=== PATIENT | female | born 1955 | race Caucasian/White ===

== ENCOUNTER 2024-05-19 09:00 | Observation (INO) ==
--- NOTE | 2024-05-19 09:11 | Emergency Department Note ---
HPI - URI/Sore Throat General Chief Complaint: Headache Stated Complaint: GENERAL ILLNESS Time Seen by Provider: 05/19/24 09:02 Source: patient Limitations: no limitations History of Present Illness HPI Narrative: This is a 69 year old female patient that presents to the ER with c/o nasal congestion, headaches, sore throat and Nausea since 0400 this morning. Patient denies any chest pain, SOB, abdominal pain, back pain, fever, chills, vomiting or diarrhea MD elicited complaint: Reports sore throat, rhinorrhea and nasal congestion Onset (ago): hour(s) (5) Associated symptoms: Reports headache, rhinorrhea, nasal congestion, sore throat and nausea Treatments prior to arrival: Reports none Related Data Allergies Allergy/AdvReac Type Severity Reaction Status Date / Time Sulfa (Sulfonamide Allergy Unknown Verified 05/19/24 09:07 Antibiotics) Review of Systems Status of ROS 10 or more systems reviewed and unremark able except as noted in history and below Constitutional Denies: fever, chills, change in weight, fatigue, malaise, night sweats or change in sleep pattern Eyes Denies: change in vision, blurry vision, blind spots or light sensitivity Ears, nose, mouth, and throat Reports: throat pain; Denies: neck pain, throat swelling, difficulty swallowing or hoarseness Cardiovascular Denies: chest pain, palpitations, edema, swelling of feet/ankles or lightheadedness Respiratory Reports: cough; Denies: shortness of breath, wheezing, stridor or pain on inspiration Gastrointestinal Reports: nausea; Denies: abdominal pain, vomiting, coffee grounds in vomit, heartburn or diarrhea Genitourinary Denies: painful urination, urinary frequency, urinary urgency, urinary incontinence or blood in urine Musculoskeletal Denies: back pain, neck pain, extremity pain, extremity swelling or joint pain Integumentary/Breast Denies: rash, itching, redness, skin pain, skin tenderness or skin swelling Neurological Denies: headache, numbness in extremities, weakness in extremities or lack of coordination Psychiatric Denies: anxiety, mood swings, panic attacks, change in sleep pat tern or hopelessness Endocrine Denies: excessive urination, excessive thirst, fatigue, cold intolerance or excessive sweating Hematologic/Lymphatic Denies: easy bruising or easy bleeding Allergic/Immunologic Denies: hives, throat swelling, tongue swelling or facial swelling PFSH PFSH Medical History (Updated 05/19/24 @ 11:39 by Carmel Dwyer, JAYCEE) Hypothyroidism Hypertension Surgical History (Updated 05/19/24 @ 11:39 by Carmel Dwyer, JAYCEE) History of nasal surgery Social History Smoking status: never smoker Exam Constitutional: normal general appearance and no apparent distress Vital Signs - 24 hr 05/19/24 09:00 05/19/24 09:45 05/19/24 10:30 Temperature 98.2 F Pulse Rate 94 H 77 79 Respiratory Rate 20 20 20 Blood Pressure 159/83 178/66 153/86 Pulse Oximetry 96 97 97 Oxygen Delivery Me thod Room Air Room Air Room Air 05/19/24 11:15 05/19/24 11:45 Temperature Pulse Rate 77 76 Respiratory Rate 20 20 Blood Pressure 141/63 148/81 Pulse Oximetry 95 98 Oxygen Delivery Me thod Room Air Room Air HENMT: normocephalic, head/scalp atraumatic, hearing grossly normal bilaterally, external ears normal, nasal mucous membranes normal, external nose normal, oral mucous membranes normal and oropharynx normal + nasal congestion Eyes: PERRL, EOMs intact bilaterally and conjunctivae normal Neck/C-Spine: visual inspection normal and trachea midline Lymph: no lymphadenopathy noted Chest: inspection of chest normal Respiratory: breath sounds equal bilaterally, normal respiratory effort, clear to auscultation bilaterally, no wheezes, no rales, no retractions and no use of accessory muscles Cardiovascular: normal heart rate noted, regular rhythm noted, no gallop, no rub, no murmur, no JVD, no clicks, peripheral pulses 2+ throughout and no additional abnormal heart sounds Gastrointestinal: abdomen normal to inspection, abdomen soft to palpation, nontender to palpation, nontender to percussion, nondistended, normoactive bowel sounds, no hepatosplenomegaly, no masses, no pulsatile mass, no ascites and no hernia Genitourinary: no CVA tenderness Back/Pelvis: spine normal to inspection Extremities: normal to inspection, normal to palpation, no tenderness, full ROM, no joint enlargement and no deformity Neurology: 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, no movement abnormality noted, no focal motor d eficit noted, no sensory deficits noted, gait normal, speech normal, coordination normal, no pronator drift noted, no fasciculations noted and GCS normal Psychiatry: mental status grossly normal, oriented x3, thought process normal and cooperative Skin: skin color normal Course Course Hospital Course: 1023: VSS, no s/s of acute distress noted 1103: Walking O2 sats 94-99%RA, no s/s of acute distress noted 1129: patient states she still is having Nausea and not feeling any better will admit patient to the hospital for further evaluation Vital Signs Vital signs: Vital Signs Temperature 98.2 F 05/19/24 09:00 Pulse Rate 94 H 05/19/24 09:00 Respiratory Rate 20 05/19/24 09:00 Blood Pressure 159/83 05/19/24 09:00 Pulse Oximetry 96 05/19/24 09:00 Oxygen Delivery Method Room Air 05/19/24 09:00 Temperature 98.2 F 05/19/24 09:00 Pulse Rate 76 05/19/24 11:45 Respiratory Rate 20 05/19/24 11:45 Blood Pressure 148/81 05/19/24 11:45 Pulse Oximetry 98 05/19/24 11:45 Oxygen Delivery Method Room Air 05/19/24 11:45 MDM - URI/Sore Throat Differential Diagnosis Upper Respiratory Differential Diagnosis: upper respiratory infection Medical Records MDM Medical Records Attestation: I reviewed the patient's medical records. Lab Data Attestation: I reviewed the patient's lab results. Labs: Lab Results 05/19/24 05/19/24 Range/Units 09:10 11:43 WBC 7.0 (4.3-9.3) K/uL RBC 3.6 L (4.00-5.50) M/uL Hgb 11.1 L (12.5-15.8) gm/dL Hct 33.8 L (35.9-46.7) % MCV 93.4 (81.0-93.7) fl MCH 30.7 (27.6-32.2) pg MCHC 32.9 L (33.1-35.3) g/dl RDW 17.2 H (11.4-14.2) % Plt Count 358 H (152-353) K/uL MPV 8.3 (6.9-10.8) fl Gran % 90.0 H (47.8-71.3) % Lymph % (Auto) 3.0 L (20.0-43.0) % Sac % (Auto) 6.3 (3.6-9.8) % Eos % (Auto) 0.1 L (0.4-2.8) % Baso % (Auto) 0.6 (0.1-0.85) Lymph # (Auto) 0.2 L (1.1-3.1) Sac # (Auto) 0.4 L (1.1-3.1) Eos # (Auto) 0.0 (0.0-0.2) Baso # (Auto) 0.0 (0.0-0.1) Absolute Gran (auto) 6.3 H (2.3-6.0) Sodium 138 (136-145) mmol/L Potassium 4.0 (3.6-5.2) mmol/L Chloride 102.0 (98-107) mmol/L Carbon Dioxide 25 (21-32) mmol/L Anion Gap 11.0 (4-14) mEq/L BUN 21 H (7-18) mg/dL Creatinine 0.8 (0.6-1.3) mg/dL Estimated GFR 78.7 (>59.9) Glucose 121 H (70-110) mg/dL Lactic Acid 0.8 (0.27-1.43) mmol/L Calcium 8.3 L (8.5-10.1) mg/dL Total Bilirubin 0.30 (0.0-1.0) mg/dL AST 28 (15-37) U/L ALT 32 (30-65) U/L Alkaline Phosphatase 65 (50-136) U/L Troponin I High Sens 4.30 (4.0-60.4) ng/L Total Protein 6.8 (6.4-8.2) g/dL Albumin 3.6 (3.4-5.0) g/dL Lipase 20.0 (16.0-77.0) U/L COVID-19 (ANA LUISA) Detected A (Not Detectd) Influenza Type A Ag Negative (Negative) Influenza Type B Ag Negative (Negative) Streptococcus Screen Negative (Negative) Imaging Data Attestation imaging: I have reviewed the pertinent imaging results. Radiologist Impression: CT brain: negative ECG Data Attestation ECG: I have reviewed the pertinent ECG results. Discharge Plan Discharge Patient Disposition: Admitted As Observation Condition: Stable Clinical Impression: COVID, Intractable nausea and vomiting, Acute intractable headache Print Language: Syriac Referrals: Mekhi Dubose [Primary Care Provider] - Time of Disposition: 12:56
[2024-05-19] MEDS: ONDANSETRON HCL/PF 4 MG/2 ML VIAL INJ ONE (09:18)
[2024-05-19] MEDS: ACETAMINOPHEN 325 MG TABLET PO ONE (09:18)
[2024-05-19] MEDS: ONDANSETRON HCL/PF 4 MG/2 ML VIAL IVP ONE (10:45)
[2024-05-19] MEDS: 0.9 % SODIUM CHLORIDE 1000 ML 1,000 ML IV STA (10:45)
[2024-05-19 12:33] LABS: Basophils%(Percent) Auto 0.6 (0.1-0.85); Eosinophils%(Percent) Auto 0.1 % (0.4-2.8); Granulocytes#(Absolute)- Auto 6.3 (2.3-6.0); Hematocrit 33.8 % (35.9-46.7); Mean Corpuscular Volume 93.4 fl (81.0-93.7); Monocytes #(Absolute)- Auto 0.4 (1.1-3.1); Monocytes %(Percent)- Auto 6.3 % (3.6-9.8); Platelet Count 358 K/uL (152-353)
[2024-05-19 12:56] LABS: Urine Appearance CLEAR (CLEAR); Urine Blood TRACE (NEG - TRACE); Urine Color YELLOW (STRAW/YELL.); Urine Urobilinogen Normal (NORMAL)
[2024-05-19 12:57] LABS: Urine Amorphous Sediment Negative (Negative); Urine Yeast Negative (Negative)
[2024-05-19] MEDS: MORPHINE SULFATE 2 MG/ML CARTRIDGE IV ONE (12:57)
[2024-05-19] MEDS ORDERED: ACETAMINOPHEN 500 MG TABLET PO PRN (14:37)
[2024-05-19] MEDS: 0.9 % SODIUM CHLORIDE 1000 ML 1,000 ML IV SCH (15:55)
[2024-05-19] MEDS: ONDANSETRON HCL/PF 4 MG/2 ML VIAL INJ PRN (20:50)
[2024-05-20 05:37] LABS: Basophils%(Percent) Auto 0.2 (0.1-0.85); Granulocytes % - Auto 62.9 % (47.8-71.3); Granulocytes#(Absolute)- Auto 3.1 (2.3-6.0); Hematocrit 32.6 % (35.9-46.7); Mean Corpuscular Volume 93.9 fl (81.0-93.7); Monocytes #(Absolute)- Auto 1.2 (1.1-3.1); Monocytes %(Percent)- Auto 23.7 % (3.6-9.8); Platelet Count 306 K/uL (152-353); White Blood Count 4.9 K/uL (4.3-9.3)
[2024-05-20 06:11] LABS: Potassium 3.7 mmol/L (3.6-5.2)
[2024-05-20] MEDS: MORPHINE SULFATE 2 MG/ML CARTRIDGE IV PRN (08:17)
[2024-05-20 08:18] VITALS: RESP 19
[2024-05-20] MEDS: PANTOPRAZOLE SODIUM 40 MG VIAL IVP SCH (10:49)
[2024-05-20] MEDS: CEFTRIAXONE SODIUM 1 GM in 0.9 % SODIUM CHLORIDE MB+ 50 ML IV SCH ×2 (10:50→17:39)
--- NOTE | 2024-05-20 15:20 | Short Stay Summary ---
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 Patient denies any chest pain, SOB, abdominal pain, back pain, fever, chills, vomiting or diarrhea. Patien t states started getting a cold on monday apon awakening. severe headache Monday am around 4 am and she could not go back to sleep and she was vomiting and nausea at the same time started at 4 am this morning. 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 complaint: Reports sore throat, rhinorrhea and nasal congestion Review of Systems Status of ROS 10 or more systems reviewed and unremark able except as noted in history and below Constitutional Reports: fatigue, malaise and change in sleep pattern; Denies: fever, chills, change in weight or night sweats Eyes Reports: dry eyes; Denies: change in vision, blurry vision, blind spots, light sensitivity, eye discomfort, eye discharge, increased production of tears, seeing flashes or decreased night vision Ears, nose, mouth, and throat Reports: throat pain, nasal discharge and nasal congestion; Denies: neck pain, throat swelling, difficulty swallowing, hoarseness, mouth pain, swelling of lips/tongue, dry mouth, bad breath, ear discharge, change in hearing or tinnitus Cardiovascular Denies: chest pain, palpitations, edema, swelling of feet/ankles, lightheadedness, shortness of breath with exertion or shortness of breath when lying down Respiratory Reports: cough and change in phlegm color; Denies: shortness of breath, wheezing, stridor, pain on inspiration or coughing up blood Gastrointestinal Reports: nausea, vomiting and feeling full early; Denies: abdominal pain, coffee grounds in vomit, heartburn, diarrhea, constipation, bloating, belching, excessive passing of gas, difficulty swallowing or change in bowel habits Genitourinary Denies: painful urination, urinary frequency, urinary urgency, urinary incontinence or blood in urine Musculoskeletal Reports: back pain (chronic) and limited range of motion; Denies: neck pain, extremity pain, extremity swelling or joint pain Integumentary/Breast Denies: rash, itching, redness, skin pain, skin tenderness, skin swelling, sores or new lesion Neurological Reports: headache, dizziness and difficulty communicating thoughts; Denies: numbness in extremities, weakness in extremities, lack of coordination, vertigo, confusion, behavioral changes, slurred speech or seizure- like activity Psychiatric Reports: anxiety and difficulty concentrating; Denies: mood swings, panic attacks, change in sleep pattern, hopelessness, loss of interest, irritability, visual hallucinations or auditory hallucinations Endocrine Denies: excessive urination, excessive thirst, fatigue, cold intolerance, excessive sweating, flushing or heat intolerance Hematologic/Lymphatic Denies: easy bruising, easy bleeding or enlarged lymph nodes Allergic/Immunologic Reports: seasonal allergies; Denies: hives, throat swelling, tongue swelling, facial swelling, wheezing, itchy eyes or food intolerance [facility] Medical History (Updated 05/20/24 @ 15:38 by Chantelle Fraser DO) Chronic back pain Sinusitis, acute Essential thrombocytosis Diverticulosis Hypothyroidism Hypertension Surgical History Hx of tonsillectomy H/O: hysterectomy History of nasal surgery Social History Smoking status: never smoker Problems where you live: no known problems Highest level of school completed/degree received: [employer] Meds Home Medications and Allergies Home Medications Medication Instructions Recorded Confirmed Type ciprofloxacin HCl 500 mg tablet 500 mg PO Q12H uti #10 tabs 05/20/24 Rx (Cipro) famotidine 20 mg tablet 20 mg PO BID 05/20/24 05/20/24 History fluticasone propionate 50 1 spray intranasal BID sinusitis 05/20/24 Rx mcg/actuation nasal #16 grams spray,suspension (Flonase Allergy Relief) hydroxyurea 500 mg capsule 500 mg PO DAILY 05/20/24 05/20/24 History levothyroxine 100 mcg tablet 100 mcg PO DAILY 05/20/24 05/20/24 History meloxicam 15 mg tablet 15 mg PO DAILY 05/20/24 05/20/24 History omeprazole 40 mg capsule,delayed 40 mg PO DAILY 05/20/24 05/20/24 History release ondansetron 4 mg disintegrating 4 mg PO Q6H PRN nausea and 05/20/24 Rx tablet vomiting #10 tabs tramadol 50 mg tablet 50 mg PO BID 05/20/24 05/20/24 History zolpidem 12.5 mg tablet,extended 12.5 mg PO BEDTIME 05/20/24 05/20/24 History release,multiphase Allergies Allergy/AdvReac Type Severity Reaction Status Date / Time Sulfa (Sulfonamide Allergy Unknown Verified 05/19/24 09:07 Antibiotics) Exam Constitutional: abnormal general appearance (disheveled) and (chronically ill), no apparent distress, abnormal body habitus (obese), limitations noted (physical limitations) and alert Vital Signs - 24 hr 05/19/24 16:00 05/19/24 19:50 05/19/24 23:39 Temperature 98.0 F 98.4 F 98.2 F Pulse Rate [Left R adial] 79 65 76 Respiratory Rate 18 19 17 Blood Pressure [Le ft Arm] 159/82 154/83 151/73 Pulse Oximetry 96 94 L 96 Oxygen Delivery Me thod Room Air Room Air Room Air 05/20/24 03:51 05/20/24 08:00 05/20/24 12:00 Temperature 97.8 F 98 F 97.9 F Pulse Rate [Left R adial] 71 65 66 Respiratory Rate 20 19 19 Blood Pressure [Le ft Arm] 156/69 159/66 137/80 Pulse Oximetry 96 96 95 Oxygen Delivery Me thod Room Air Room Air Room Air HENMT: normocephalic, head/scalp atraumatic, hearing grossly normal bilaterally, external ears normal, TMs abnormal (bulging), (fluid behind TM) and (TM mobility abnormal), nasal mucous membranes abnormal (nasal discharge) and other (recent sinus surgery noted with left sided changes), external nose normal, oral mucous membranes normal, oropharynx abnormal (erythema) and other (PND), dentition abnormal and gingiva normal + nasal congestion Eyes: PERRL, EOMs intact bilaterally and conjunctivae normal Neck/C-Spine: visual inspection normal and trachea midline Lymph: no lymphadenopathy noted Chest: inspection of chest normal Respiratory: breath sounds unequal (deminished bases secondary to body habitus and shallow breathing), normal respiratory effort, clear to auscultation bilaterally, no wheezes, no rales, no retractions and no use of accessory muscles Cardiovascular: heart rate abnormal (bradycardic), regular rhythm noted, no gallop, no rub, no murmur, no JVD, no clicks, peripheral pulses 2+ throughout and no additional abnormal heart sounds Gastrointestinal: abdomen normal to inspection, abdomen soft to palpation, tender to palpation (mild), (LLQ) and (RLQ), nontender to percussion, nondistended, normoactive bowel sounds, hepatosplenomegaly noted, no masses, no pulsatile mass, no ascites and no hernia Genitourinary: no CVA tenderness, bladder abnormal to palpation and external appearance normal Back/Pelvis: thoracic spine tenderness noted, lumbar spine tenderness noted, thoracic spine ROM abnormal and lumbar spine ROM abnormal Extremities: normal to palpation, tenderness noted, abnormal ROM noted, no joint enlargement and no deformity Neurology: pullman clerk II-XII intact, no movement abnormality noted, no focal motor deficit noted, sensory deficit noted, deep tendon reflexes 2+ bilaterally, gait abnormality noted, speech normal, coordination normal, no pronator drift noted, no fasciculations noted and GCS normal Psychiatry: mental status grossly normal, oriented x3, thought process normal, cooperative, affect normal, psychomotor activity normal and memory normal Feel stressed/tense/nervous/anxious/difficulty sleeping: to some extent Life stressors: financial matters and unknown source of stress Skin: skin color normal, no rash, no lesions, no ecchymosis noted, no wounds, skin turgor abnormal, no jaundice, no petechiae, no mottling and nails abnormality noted Assessment and Plan Assessment and Plan (1) Acute cystitis with hematuria: Code(s): N30.01 - Acute cystitis with hematuria (2) COVID-19: Code(s): U07.1 - COVID-19 (3) Acute intractable headache: Qualifiers: Headache type: tension-type Qualified Code(s): G44.201 - Tension-type headache, unspecified, intractable Code(s): R51.9 - Headache, unspecified (4) Sinusitis, acute: Qualifiers: Recurrence: non-recurrent Sinusitis location: pansinusitis Qualified Code(s): J01.40 - Acute pansinusitis, unspecified Code(s): J01.90 - Acute sinusitis, unspecified (5) Chronic back pain: Qualifiers: Back pain location: back pain in other location Qualified Code(s): M54.89 - Other dorsalgia; G89.29 - Other chronic pain Code(s): M54.9 - Dorsalgia, unspecified; G89.29 - Other chronic pain (6) Hypertension: Qualifiers: Hypertension type: primary hypertension Qualified Code(s): I10 - Essential (primary) hypertension Code(s): I10 - Essential (primary) hypertension (7) Essential thrombocytosis: Code(s): D47.3 - Essential (hemorrhagic) thrombocythemia (8) Hypothyroidism: Qualifiers: Hypothyroidism type: acquired Qualified Code(s): E03.9 - Hypothyroidism, unspecified Code(s): E03.9 - Hypothyroidism, unspecified (9) Nausea & vomiting: Qualifiers: Vomiting type: bilious vomiting Qualified Code(s): R11.14 - Bilious vomiting Code(s): R11.2 - Nausea with vomiting, unspecified Results Labs Labs: CBC WBC 4.9 K/uL (4.3-9.3) 05/20/24 05:20 RBC 3.5 M/uL (4.00-5.50) L 05/20/24 05:20 Hgb 11.0 gm/dL (12.5-15.8) L 05/20/24 05:20 Hct 32.6 % (35.9-46.7) L 05/20/24 05:20 MCV 93.9 fl (81.0-93.7) H 05/20/24 05:20 MCH 31.7 pg (27.6-32.2) 05/20/24 05:20 MCHC 33.8 g/dl (33.1-35.3) 05/20/24 05:20 RDW 17.3 % (11.4-14.2) H 05/20/24 05:20 Plt Count 306 K/uL (152-353) 05/20/24 05:20 MPV 8.1 fl (6.9-10.8) 05/20/24 05:20 Gran % 62.9 % (47.8-71.3) 05/20/24 05:20 Lymph % (Auto) 13.2 % (20.0-43.0) L 05/20/24 05:20 [place] % (Auto) 23.7 % (3.6-9.8) H 05/20/24 05:20 Eos % (Auto) 0.0 % (0.4-2.8) L 05/20/24 05:20 Baso % (Auto) 0.2 (0.1-0.85) 05/20/24 05:20 Lymph # (Auto) 0.7 (1.1-3.1) L 05/20/24 05:20 [place] # (Auto) 1.2 (1.1-3.1) 05/20/24 05:20 Eos # (Auto) 0.0 (0.0-0.2) 05/20/24 05:20 Baso # (Auto) 0.0 (0.0-0.1) 05/20/24 05:20 Absolute Gran (auto) 3.1 (2.3-6.0) 05/20/24 05:20 BMP Sodium 137 mmol/L (136-145) 05/20/24 05:20 Potassium 3.7 mmol/L (3.6-5.2) 05/20/24 05:20 Chloride 103.0 mmol/L (98-107) 05/20/24 05:20 Carbon Dioxide 23 mmol/L (21-32) 05/20/24 05:20 Anion Gap 11.0 mEq/L (4-14) 05/20/24 05:20 BUN 17 mg/dL (7-18) 05/20/24 05:20 Creatinine 0.6 mg/dL (0.6-1.3) 05/20/24 05:20 Estimated GFR 95.9 (>59.9) 05/20/24 05:20 Glucose 100 mg/dL (70-110) 05/20/24 05:20 Calcium 8.7 mg/dL (8.5-10.1) 05/20/24 05:20 Total Bilirubin 0.25 mg/dL (0.0-1.0) 05/20/24 05:20 AST 21 U/L (15-37) 05/20/24 05:20 ALT 27 U/L (30-65) L 05/20/24 05:20 Alkaline Phosphatase 55 U/L (50-136) 05/20/24 05:20 Total Protein 6.6 g/dL (6.4-8.2) 05/20/24 05:20 Albumin 3.4 g/dL (3.4-5.0) 05/20/24 05:20 Cardiac Enzymes Troponin I High Sens 4.30 ng/L (4.0-60.4) 05/19/24 11:43 Liver Function Total Bilirubin 0.25 mg/dL (0.0-1.0) 05/20/24 05:20 AST 21 U/L (15-37) 05/20/24 05:20 ALT 27 U/L (30-65) L 05/20/24 05:20 Alkaline Phosphatase 55 U/L (50-136) 05/20/24 05:20 Total Protein 6.6 g/dL (6.4-8.2) 05/20/24 05:20 Albumin 3.4 g/dL (3.4-5.0) 05/20/24 05:20 Urine Urine Color Yellow (STRAW/YELL.) 05/19/24 12:29 Urine Appearance Clear (CLEAR) 05/19/24 12:29 Ur Specific [place] 1.030 (1.001-1.035) 05/19/24 12:29 Urine Protein Negative (NEGATIVE) 05/19/24 12:29 Urine Glucose (UA) Normal (NORMAL) 05/19/24 12:29 Urine Ketones Large (NEGATIVE) 05/19/24 12:29 Urine Occult Blood Trace (NEG - TRACE) 05/19/24 12:29 Urine Nitrite Positive (NEGATIVE) 05/19/24 12:29 Urine Bilirubin Negative (NEGATIVE) 05/19/24 12:29 Urine Urobilinogen Normal (NORMAL) 05/19/24 12:29 Ur Leukocyte Esterase Negative (NEGATIVE) 05/19/24 12:29 Covid 19 positive with flu A and B and RSV not detected Pulse Oximetry Attestation: I have reviewed the pertinent pulse oximetry results. ECG Attestation: I have reviewed the pertinent ECG results. Prior ECG tracings: available for review Imaging Imaging ordered: Chest x-ray and CT scan - head Radiologist's impression: CT HEAD/BRAIN WO CON HISTORY: headacheheadache; COMPARISON: None. TECHNIQUE: Contiguous noncontrast axial CT images of the brain. Images reviewed in the axial imaging plane with reformatted sagittal and coronal images.The above CT scan was done with automated exposure control and the mA and kV was adjusted to obtain quality images according to patient size. FINDINGS: No evidence of acute intracranial hemorrhage, mass effect, or midline shift. Ventricles normal size and shape. Calvarium appears intact. Postsurgical changes left ethmoid, maxillary, and nasal passages. IMPRESSION: No acute intracranial process seen. Portable chest HISTORY: Chest pain COMPARISON: 03/14/2022 FINDINGS: Heart size is normal. Kajal are normal. Aorta is calcified. Right hemidiaphragm is chronically elevated. No congestive heart failure or infiltrates identified. There is minimal subsegmental atelectasis in the right lung base. Bony thorax is unremarkable. IMPRESSION: No acute infiltrates Minimal subsegmental atelectasis right lung base Chronically elevated right hemidiaphragm, stable DS: Providers Provider Date of admission: 05/19/24 13:04 Primary care physician: Mekhi Dubose Admitting clinician: Malu Paige Attending physician on admission: Joel Jones Attending physician on discharge: Chantelle Fraser Discharging clinician: Chantelle Fraser Anticipated date of discharge: 05/20/24 DS: Summary Hospital Course Hospital Course: 1023: VSS, no s/s of acute distress noted 1103: Walking O2 sats 94-99%RA, no s/s of acute distress noted 1129: patient states she still is having Nausea and severe headache 10 out of 10 and morphine and toradol did nothing to relieve headache in the ER and not feeling any better will admit patient to the hospital for further evaluation given rocephin 1 gram in the ER on arrival to the floor patient still unable to rest and has not slept since monday early am when she woke up ill. Morphine in the am still did not allow her to rest but it bought the headache from a 10 out of 10 to a 1-2 and very bearable and nausea resolved and patient ate lunch hung around the floor to get her 3rd dose of rocephin and hopefully her culture would be back but so far at discharge not reported out except we know gram negative rods sensitivity to follow. will discharge home on po cipro x 5 days. Reassurance and flonase and tesselon perles given to patient for symptom relief and she can buy mucinex otc for the covid and sinus infections if issues persist see her PCP in 2-5 days Status at Discharge Functional status at discharge: independent ambulation Overall status at discharge: patient is progressing back to baseline Time Spent with Patient Time attestation: Total time spent providing and/or coordinating discharge services: Time spent: greater than 30 minutes Specific discharge activities: will discharge home on po cipro x 5 days. Reassurance and flonase and tesselon perles given to patient for symptom relief and she can buy mucinex otc for the covid and sinus infections if issues persist see her PCP in 2-5 days increase water intake avoid contacts and extreme temps and allergens if she has to go out do wear a mask at all times and wash hands often missed colonoscopy today with Dr Sabillon and she has rescheduled with his office returns Monday to [place] for her sinus surgery 3 month follow up Discharge Plan Discharge Disposition: Home, Self-Care Condition: Improved Discharge Medications: New ciprofloxacin HCl [Cipro] 500 mg tablet 500 mg PO Q12H Qty: 10 0RF ondansetron 4 mg tablet,disintegrating 4 mg PO Q6H PRN (Reason: nausea and vomiting) Qty: 10 0RF fluticasone propionate [Flonase Allergy Relief] 50 mcg/actuation spray,suspension 1 spray intranasal BID Qty: 16 0RF Rx Instructions: administer into each nostril Continued tramadol 50 mg tablet 50 mg PO BID Patient Comments: TAKE ONE TABLET BY MOUTH TWICE DAILY levothyroxine 100 mcg tablet 100 mcg PO DAILY meloxicam 15 mg tablet 15 mg PO DAILY hydroxyurea 500 mg capsule 500 mg PO DAILY omeprazole 40 mg capsule,delayed release(DR/EC) 40 mg PO DAILY Patient Comments: TAKE ONE CAPSULE BY MOUTH DAILY zolpidem 12.5 mg tablet,ext release multiphase 12.5 mg PO BEDTIME Patient Comments: TAKE ONE TABLET BY MOUTH AT BEDTIME famotidine 20 mg tablet 20 mg PO BID Discharge Orders: Discharge Order (Routine); Ordered 05/20/24 Ordered By: Chantelle Fraser Activity: increase activity as tolerated Diet: advance to your usual diet Interventions: MED/SURG & ICU Observation Charge Sheet Last Done: 05/20/24 06:30 Activity Restrictions/Additional Instructions: will discharge home on po cipro x 5 days. Reassurance and flonase and tesselon perles given to patient for symptom relief and she can buy mucinex otc for the covid and sinus infections if issues persist see her PCP in 2-5 days increase water intake avoid contacts and extreme temps and allergens if she has to go out do wear a mask at all times and wash hands often missed colonoscopy today with Dr Sabillon and she has rescheduled with his office returns Monday to [place] for her sinus surgery 3 month follow up Forms: Portal/Health Info Access Inst Follow-Ups: Lupe Rajput NP [Physician] - 05/27/24 2:10 pm
[2024-05-20 16:16] VITALS: BP 159/74; PULSE 68; TEMP 98.1
[2024-05-20] MEDS ORDERED: CEFTRIAXONE SODIUM 1 GM in 0.9 % SODIUM CHLORIDE MB+ 50 ML IV SCH (21:00)
== END 2024-05-20 18:38 | disposition home or self-care (01) ==
LOC: ED 09:00 → MS 09:00
PROVIDERS: ADMIT Family Medicine; ATTEND Family Medicine
DX: N30.01 Acute cystitis with hematuria; R11.14 Bilious vomiting; U07.1 COVID-19; G44.201 Tension-type headache, unspecified, intractable; R11.2 Nausea with vomiting, unspecified; R09.81 Nasal congestion; R07.89 Other chest pain; E03.8 Other specified hypothyroidism; I10 Essential (primary) hypertension; G89.29 Other chronic pain; J01.40 Acute pansinusitis, unspecified; M54.89 Other dorsalgia; D47.3 Essential (hemorrhagic) thrombocythemia; J02.9 Acute pharyngitis, unspecified